=== PATIENT | female | born 1970 | race Caucasian/White ===

== ENCOUNTER 2020-01-27 09:32 | Outpatient (CLI) | payer BC ==
--- NOTE | 2020-01-27 10:22 | RAD ---
PA AND LATERAL VIEWS CHEST: HISTORY: Dyspnea. FINDINGS: The cardiomediastinum is normal. The lungs are expanded and clear. The bony thorax is unremarkable. IMPRESSION: Unremarkable exam. POS: [facility]
== END 2020-01-27 09:33 | disposition home or self-care (01) ==
LOC: BICRAD 09:32
PROVIDERS: ATTEND Internal Medicine Critical Care Medicine
DX: R06.00 Dyspnea, unspecified (principal)
CPT/HCPCS: 71046